=== PATIENT | male | born 1980 | race Caucasian/White ===

== ENCOUNTER 2017-01-21 14:03 | Emergency (ER) | payer MEDICAID, OTHER, SELFPAY ==
[~2017-01-21] VITALS: Ht 170.2 cm; Wt 81.8 kg
[~2017-01-21 14:03] MED LIST: Aripiprazole PO; HYDR-3363 PO; TRAZO50TA PO
[2017-01-21 16:24] VITALS: BP 112/78
--- NOTE | 2017-01-21 16:32 | REP ---
ULTRASOUND RIGHT FLANK: Real-time sonographic evaluation of the right flank soft tissues performed just below the level of the umbilicus at the site of a palpable abnormality. In the soft tissues at this location there is a somewhat complex fluid collection which measures 5.9 x 2.8 x 5.5 cm. There is a history of trauma to this region and this could represent an old hematoma. Signed by Benton Goode MD 01/21/2017 05:09 P
== END 2017-01-21 16:27 | disposition home or self-care (01) ==
LOC: M ED 14:03
DX: S70.11XA Contusion of right thigh, initial encounter (principal); F32.9 Major depressive disorder, single episode, unspecified; Z72.0 Tobacco use; W01.198A Fall on same level from slipping, tripping and stumbling with subsequent striking against other object, initial encounter; Y92.89 Other specified places as the place of occurrence of the external cause; Y93.89 Activity, other specified; Y99.9 Unspecified external cause status

== ENCOUNTER 2018-07-22 05:47 | Emergency (ER) | payer MEDICAID, SELFPAY ==
[~2018-07-22] VITALS: Ht 170.2 cm; Wt 81.8 kg
[2018-07-22] MEDS ORDERED: MAGICMW SSP (06:58)
[2018-07-22] MEDS ORDERED: KETO10TAB PO (06:58)
[2018-07-22] MEDS ORDERED: AUGM875T28 PO (07:00)
[2018-07-22] MEDS ORDERED: KETOROLAC 30 MG/ML VIAL (J1885) IM ONE (07:00)
[2018-07-22 07:33] VITALS: BP 113/77
== END 2018-07-22 07:48 | disposition home or self-care (01) ==
LOC: M ED 05:47
DX: K02.9 Dental caries, unspecified (principal); S02.5XXA Fracture of tooth (traumatic), initial encounter for closed fracture; X58.XXXA Exposure to other specified factors, initial encounter; Y92.89 Other specified places as the place of occurrence of the external cause; F17.200 Nicotine dependence, unspecified, uncomplicated
CPT/HCPCS: 96372; 99283; J1885

== ENCOUNTER → 2018-12-02 | Outpatient (REF) | payer OTHER ==
[~2018-12-02] MED LIST changes: +ABIL1TAB13; +AUGM875T28 PO; +KETO10TAB PO; +MAGICMW SSP; +MITI1CAP; +NAPR-885; +TRAZ1TAB10 PO; -TRAZO50TA PO
== END ==
LOC: M SFHCPLAZ 14:40
DX: Z13.1 Encounter for screening for diabetes mellitus (principal); Z71.89 Other specified counseling; M12.9 Arthropathy, unspecified; Z53.9 Procedure and treatment not carried out, unspecified reason

== ENCOUNTER 2018-12-04 05:59 | Emergency (ER) | payer OTHER ==
[~2018-12-04] VITALS: Ht 172.7 cm; Wt 80.0 kg
[~2018-12-04 05:59] MED LIST changes: -ABIL1TAB13; -MITI1CAP; -NAPR-885
[2018-12-04 06:24] VITALS: BP 130/72
[2018-12-04 07:22] LABS: HEMATOCRIT 49.4 % (42.0-52.0); HEMOGLOBIN 16.1 g/dl (13.5-17.5); MEAN CORPUSCULAR HEMOGLOBIN 29.9 pg (27.0-33.0); MEAN CORPUSCULAR HGB CONC 32.6 g/dl (32.0-36.5); MEAN CORPUSCULAR VOLUME 91.8 fl (80.0-96.0); PLATELET COUNT, AUTOMATED 302 10^3/uL (150-450); RED BLOOD COUNT 5.38 10^6/uL (4.30-6.10); WHITE BLOOD COUNT 12.5 10^3/uL (4.0-10.0)
[2018-12-04] MEDS ORDERED: NAPR-885 (07:26)
[2018-12-04] MEDS ORDERED: ABIL1TAB13 (07:26)
[2018-12-04] MEDS ORDERED: MITI1CAP (07:26)
[2018-12-04 07:39] LABS: BLOOD UREA NITROGEN 14 MG/DL (7-18); CALCIUM LEVEL 9.3 MG/DL (8.5-10.1); CARBON DIOXIDE LEVEL 26 MEQ/L (21-32); CHLORIDE LEVEL 111 MEQ/L (98-107); CREATININE FOR GFR 1.02 MG/DL (0.70-1.30); GLOMERULAR FILTRATION RATE > 60.0 (>60); GLUCOSE, FASTING 112 MG/DL (70-100); POTASSIUM SERUM 4.4 MEQ/L (3.5-5.1); SODIUM LEVEL 143 MEQ/L (136-145); URIC ACID 6.7 MG/DL (3.5-7.2)
[2018-12-04] MEDS ORDERED: INDOMETHACIN 25 MG CAP PO ONE (09:15)
--- NOTE | 2018-12-07 15:02 | REP ---
REASON: Pain. No trauma. No priors. FINDINGS: The joint spaces are symmetric and relatively well maintained. There is no evidence of acute fracture or destructive osseous lesion. There is a plantar calcaneal heel spur. IMPRESSION: Negative. Electronically Signed by Scotty Link DO 12/07/2018 05:07 P
== END 2018-12-04 10:07 | disposition left against medical advice (07) ==
LOC: M ED 05:59
DX: M79.671 Pain in right foot (principal); M10.9 Gout, unspecified; F33.9 Major depressive disorder, recurrent, unspecified; F41.9 Anxiety disorder, unspecified; Z79.899 Other long term (current) drug therapy; Z88.8 Allergy status to other drugs, medicaments and biological substances; F17.210 Nicotine dependence, cigarettes, uncomplicated

== ENCOUNTER → 2019-01-18 | Outpatient (REF) | payer OTHER ==
[~2019-01-18] MED LIST changes: +ABIL1TAB13; +MITI1CAP; +NAPR-885
[2019-01-18 16:17] LABS: BASO % 0.2 % (0.0-1.0); EOS % 0.1 % (0.0-3.0); HEMATOCRIT 48.6 % (42.0-52.0); LYMPH # 2.3 10^3/uL (1.5-5.0); LYMPH % 12.4 % (24.0-44.0); MEAN CORPUSCULAR HEMOGLOBIN 30.2 pg (27.0-33.0); MEAN CORPUSCULAR HGB CONC 32.9 g/dl (32.0-36.5); MEAN CORPUSCULAR VOLUME 91.7 fl (80.0-96.0); MONO # 0.9 10^3/uL (0.0-0.8); NEUTROPHILS # 14.8 10^3/uL (1.5-8.5); NEUTROPHILS % 81.8 % (36.0-66.0); PLATELET COUNT, AUTOMATED 363 10^3/uL (150-450); WHITE BLOOD COUNT 18.1 10^3/uL (4.0-10.0)
[2019-01-18 16:22] LABS: HEMOGLOBIN A1c 5.2 %
[2019-01-18 16:27] LABS: ALT/SGPT 13 U/L (12-78); BILIRUBIN,TOTAL 0.5 MG/DL (0.2-1.0); BLOOD UREA NITROGEN 11 MG/DL (7-18); CALCIUM LEVEL 9.1 MG/DL (8.5-10.1); CARBON DIOXIDE LEVEL 26 MEQ/L (21-32); CHLORIDE LEVEL 105 MEQ/L (98-107); CHOLESTEROL LEVEL 87 MG/DL (<200); CHOLESTEROL RISK RATIO 2.806 (<5); CREATININE FOR GFR 0.92 MG/DL (0.70-1.30); GLOMERULAR FILTRATION RATE > 60.0 (>60); GLUCOSE, FASTING 105 MG/DL (70-100); HDL CHOLESTEROL 31 MG/DL (>40); LDL CHOLESTEROL 34 MG/DL (<100); NON-HDL-C 56 MG/DL; POTASSIUM SERUM 4.5 MEQ/L (3.5-5.1); SODIUM LEVEL 140 MEQ/L (136-145); TOTAL PROTEIN 7.6 GM/DL (6.4-8.2); TRIGLYCERIDES LEVEL 108 MG/DL (<150)
== END ==
LOC: M SFHCPLAZ 14:31
PROVIDERS: ATTEND Family Medicine
DX: Z13.1 Encounter for screening for diabetes mellitus (principal); E78.1 Pure hyperglyceridemia; M12.9 Arthropathy, unspecified

== ENCOUNTER 2025-01-14 05:32 | Emergency (ER) | payer MEDICAID, OTHER, SELFPAY ==
[~2025-01-14] VITALS: Ht 170.2 cm; Wt 70.3 kg
[2025-01-14 05:37] VITALS: BP 191/89; TEMP 96.6; O2SAT 100
== END 2025-01-14 11:14 | disposition left against medical advice (07) ==
LOC: EDBD 05:32 → M ED 06:57
DX: Z53.21 Procedure and treatment not carried out due to patient leaving prior to being seen by health care provider (principal)